=== PATIENT | female | born 1955 | race Caucasian/White ===

== ENCOUNTER 2021-02-27 12:01 | Emergency (ER) | payer OTHER ==
[~2021-02-27] VITALS: Ht 152.4 cm; Wt 67.3 kg
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
[2021-02-27 12:47] VITALS: BP 156/65
--- NOTE | 2021-02-27 12:54 | EKG ---
[address] [address] Test Date: 2021-02-27 Test Time: 12:47:48 Pat Name: MARIE KELLER Department: Room: Gender: F Manager Oncology: : 1955 Requested By: THEO NOLAN Order Number: [id number] Reading MD: Fidel Murry Measurements Intervals Bison Rate: 63 P: 0 ND: 176 QRS: 16 QRSD: 70 T: 19 QT: 418 QTc: 431 Interpretive Statements SINUS RHYTHM NORMAL ECG RI6.02 No previous ECG available for comparison Electronically Signed On 02-28-2021 10:10:24 PARTS ADMINISTRATOR by Fidel Murry
[2021-02-27 13:05] LABS: BASO # 0.1 x10^3/uL (0.0-0.2); BASO % 1 % (0-3); EOS # 0.3 x10^3/uL (0.0-0.7); EOS % 3 % (0-3); HEMATOCRIT 42.4 % (36.0-47.0); LYMPH % 11 % (24-48); MEAN CORPUSCULAR HEMOGLOBIN 31 pg (25-35); MEAN CORPUSCULAR HGB CONC 33 g/dL (31-37); MEAN CORPUSCULAR VOLUME 93 fL (79-100); MONO # 0.6 x10^3/uL (0.0-1.1); MONO % 7 % (0-9); NEUT % 78 % (31-73); PLATELET COUNT 405 x10^3/uL (140-400); RED BLOOD COUNT 4.54 x10^6/uL (3.50-5.40); RED CELL DISTRIBUTION WIDTH 15.4 % (11.5-14.5)
[2021-02-27 13:10] LABS: POTASSIUM ISTAT 3.8 mmol/L (3.5-5.0)
[2021-02-27 13:11] LABS: HEMOGLOBIN ISTAT 15.3 gm/dL
[2021-02-27 14:22] LABS: BACTERIA,URINE MANY /HPF (0-FEW); BILIRUBIN,URINE NEG (NEG); CLARITY,URINE CLOUDY; COLOR,URINE YELLOW; GLUCOSE,URINE NEG (NEG); NITRITE,URINE NEG (NEG); SQUAMOUS EPITHELIAL CELL,UR MOD /LPF; UROBILINOGEN,URINE 0.2 mg/dL (0.2 mg/dL)
[2021-02-27] MEDS ORDERED: NITROFURANTOIN MONOHYD/M-CRYST 100 MG CAPSULE. PO ONE (14:45)
[2021-02-27] MEDS ORDERED: NITR100C62 PO (14:48)
[2021-02-27 18:50] LABS: BARBITURATES NEG (NEG); BENZODIAZEPINES NEG (NEG); CANNABINOIDS NEG (NEG); COCAINE NEG (NEG); METHADONE NEG (NEG); OPIATES NEG (NEG); PHENCYCLIDINE NEG (NEG)
[2021-02-27 18:55] LABS: AMPHETAMINE/METHAMPHETAMINE NEG (NEG)
[2021-02-27 18:59] LABS: ALBUMIN 3.9 g/dL (3.4-5.0); ALBUMIN/GLOBULIN RATIO 0.9 (1.0-1.7); CALCIUM 9.1 mg/dL (8.5-10.1); CREATININE 0.8 mg/dL (0.6-1.0); POTASSIUM 3.9 mmol/L (3.5-5.1); TOTAL BILIRUBIN 0.7 mg/dL (0.2-1.0); TOTAL PROTEIN 8.2 g/dL (6.4-8.2)
== END 2021-02-27 15:02 | disposition home or self-care (01) ==
LOC: ER 12:01
DX: N39.0 Urinary tract infection, site not specified (principal); R55 Syncope and collapse; V49.49XA Driver injured in collision with other motor vehicles in traffic accident, initial encounter; Y92.488 Other paved roadways as the place of occurrence of the external cause; Y93.89 Activity, other specified; Y99.8 Other external cause status
CPT/HCPCS: 36415; 80047; 80053; 80307; 81001; 84484; 85025; 87077; 87086; 87186; 93005; 99284; G0480

== ENCOUNTER → 2021-07-06 | Outpatient (CLI) | payer MEDICARE, BC ==
[~2021-07-06] MED LIST: NITR100C62 PO
--- NOTE | 2021-07-06 17:27 | CARD ---
MR#: [id number] Date of Study: 07/06/2021 Ordering Physician: JESSENIA ZAMBRANO, Referring Physician: Pieter ZALDIVAR: Denzel Gonzalez [facility] APPROVED REPORT EXAM: Two-dimensional and M-mode echocardiogram with Doppler and color Doppler. Other Information Quality : FairHR: 68bpm Rhythm : NSRTechnically limited study due to body habitus. INDICATION Congestive Heart Failure SVT RISK FACTORS Hypertension Obesity 2D DIMENSIONS Left Atrium(2D)4.2 (1.6-4.0cm)IVSd1.2 (0.7-1.1cm) Aortic Root(2D)3.2 (2.0-3.7cm)LVDd4.3 (3.9-5.9cm) LVOT Diameter2.0 (1.8-2.4cm)PWd1.2 (0.7-1.1cm) LA Xftxtw95 (18-58mL)LVDs2.0 (2.5-4.0cm) FS (%) 54.1 %SV71.2 ml LVEF(%)85.2 (>50%) Aortic Valve AoV Peak Adi.99.8cm/sAoV VTI24.1cm AO Peak GR.4.0mmHgLVOT Peak Adi.94.4cm/s LVOT VTI 20.18cmAO Mean GR.3mmHg JESSICA (VMAX)3.78zp8QJR (VTI)2.67cm2 Mitral Valve MV E Omwfcvsp40.1cm/sMV DECEL SCFR939ie MV A Ywxegaeq95.2cm/sE/A Ratio0.9 Pulmonary Valve PV Peak Izbpvsml02.6cm/sPV Peak Grad.2mmHg Tricuspid Valve TR P. Jbdwtjzs663ej/sTR Peak Gr.25mmHg Pulmonary Vein S1 Adblsinw08.7cm/sD2 Wcaiqrtp26.0cm/s LEFT VENTRICLE The left ventricle is normal size. There is mild concentric left ventricular hypertrophy. The left ve ntricular systolic function is normal and the ejection fraction is within normal range. EF 55% There is normal LV segmental wall motion. Transmitral Doppler flow pattern is Grade I-abnormal relaxation p attern. No left ventricle thrombus noted on this study. There is no ventricular septal defect visuali zed. There is no left ventricular aneurysm. There is no mass noted in the left ventricle. RIGHT VENTRICLE The right ventricle is normal size. There is normal right ventricular wall thickness. The right ventr icular systolic function is normal. ATRIA The left atrium is borderline dilated. The right atrium is borderline dilated. The interatrial septum is intact with no evidence for an atrial septal defect or patent foramen ovale as noted on 2-D or Do ppler imaging. AORTIC VALVE The aortic valve is normal in structure and function. Doppler and Color Flow revealed no significant aortic regurgitation. There is no significant aortic valvular stenosis. There is no aortic valvular v egetation. MITRAL VALVE The mitral valve is normal in structure and function. There is no evidence of mitral valve prolapse. There is no mitral valve stenosis. Doppler and Color-flow revealed trace mitral regurgitation. TRICUSPID VALVE The tricuspid valve is normal in structure and function. Doppler and Color Flow revealed trace tricus pid regurgitation. There is no tricuspid valve prolapse or vegetation. There is no tricuspid valve st enosis. PULMONIC VALVE Doppler and Color Flow revealed no pulmonic valvular regurgitation. There is no pulmonic valvular bethanie nosis. GREAT VESSELS The aortic root is normal in size. The ascending aorta is normal in size. The IVC is normal in size a nd collapses >50% with inspiration. PERICARDIAL EFFUSION There is no pleural effusion. There is no evidence of significant pericardial effusion. Critical Notification Critical Value: No <Conclusion> The left ventricular systolic function is normal and the ejection fraction is within normal range. EF 55% There is normal LV segmental wall motion. Technically difficult study. Signed by : Michael Parsons, Electronically Approved : 07/06/2021 17:27:07
== END ==
LOC: ECHO 07:46
PROVIDERS: ATTEND Internal Medicine
DX: I51.7 Cardiomegaly (principal); I50.43 Acute on chronic combined systolic (congestive) and diastolic (congestive) heart failure; I47.1 Supraventricular tachycardia
CPT/HCPCS: 93306